=== PATIENT | male | born 1990 | race Two or more races ===

== ENCOUNTER 2022-05-21 15:42 | Emergency (ER) | payer SELFPAY ==
[~2022-05-21] VITALS: Ht 182.9 cm; Wt 138.0 kg
[2022-05-21 16:32] VITALS: BP 112/80
[2022-05-21] MEDS ORDERED: BENZ100C19 PO (17:36)
[2022-05-21] MEDS ORDERED: LORA-483 GT (17:36)
== END 2022-05-21 17:37 | disposition home or self-care (01) ==
LOC: ER 15:42
DX: T78.40XA Allergy, unspecified, initial encounter (principal); R05.9 Cough, unspecified; R04.2 Hemoptysis; E66.01 Morbid (severe) obesity due to excess calories; Z68.41 Body mass index [BMI] 40.0-44.9, adult; Z20.822 Contact with and (suspected) exposure to COVID-19; X58.XXXA Exposure to other specified factors, initial encounter
CPT/HCPCS: 36415; 71045; 87426; 87804